=== PATIENT | male | born 1965 | race Caucasian/White ===

== ENCOUNTER 2018-01-20 12:27 | Observation (INO) ==
--- NOTE | 2018-01-20 12:49 | ED ---
HPI General Chief Complaint: Neuro Symptoms/Deficit Stated Complaint: medical Time Seen by Provider: 01/20/18 12:38 Source: patient, family and RN notes reviewed Limitations: altered mental status History of Present Illness HPI Narrative: 52-year-old male presents through triage with weakness and fall yesterday night. states that today about an hour and a half ago he got worse where he could not walk. She states that the weakness is always been on the left side. She states he has not had this before but is a chronic drinker and has not been drinking since they have been down here for the past couple of days on vacation. She denies other complaints for him. Patient is able to state his name but is very confused and cannot provide significant history so history is limited on initial examination and mainly obtained from the . Related Data Home Medications Medication Instructions Recorded Confirmed No Known Home Medications 01/20/18 01/20/18 Allergies Allergy/AdvReac Type Severity Reaction Status Date / Time No Known Allergies Allergy Unverified 01/20/18 12:39 Review of Systems ROS Unobtainable ROS Unobtainable: unobtainable due to mental status PMFSH History History Provided By: Family Member (History of alcoholism without significant history per ) Medical History Medical History Patient denies medical problems (Acute) Surgical History Surgical History No history of previous surgery (Acute) Social History Social History Substance History: Past History Smoking Status: Former smoker How Often Do You Have a Drink Containing Alcohol: 4 or more times a week Recent Travel in [facility] within the Last 8 Weeks: No Recent Out of Country Travel within the Last 8 Weeks: No Exam Narrative Exam Narrative: GENERAL: 52 y/o male in no apparent distress SKIN: Focused skin assessment warm/dry. HEAD: Atraumatic. Normocephalic. EYES: Pupils equal and round. No scleral icterus. No injection or drainage. ENT: No nasal bleeding or discharge. Mucous membranes pink and moist. NECK: Trachea midline. CARDIOVASCULAR: Regular rate and rhythm. RESPIRATORY: No accessory muscle use. Clear to auscultation. Breath sounds equal bilaterally. GASTROINTESTINAL: Abdomen soft, non-tender, nondistended. MUSCULOSKELETAL: No obvious deformities. No clubbing. No cyanosis. NEUROLOGICAL: Eyes open, states voice, significant weakness noted to left arm and left leg, sensory intact, clear speech Course Reevaluation(s) Reevaluation #1: on recheck symptoms have resolved, will admit for further care , agrees to plan Consultations Consultation #1: Dr. Blood states of CT brain is negative to give full-strength aspirin and admit and agrees outside stroke alert window Consultation #2: dr prasad agrees to admit Initial Documented Vital Signs Pulse Rate 73 01/20/18 12:42 Respiratory Rate 19 01/20/18 12:42 Blood Pressure 162/97 H 01/20/18 12:42 Pulse Oximetry 98 01/20/18 12:42 Last Documented Vital Signs Pulse Rate 57 L 01/20/18 14:00 Respiratory Rate 20 01/20/18 14:00 Blood Pressure 144/81 H 01/20/18 14:00 Pulse Oximetry 95 01/20/18 14:00 Medical Decision Making MDM Narrative Medical decision making narrative: Patient is outside stroke alert window given onset of symptoms yesterday evening. Will check stroke workup and discuss with neurologist Medical Screen Exam Complete: Yes Emergency Medical Condition: Yes Differential Diagnosis Differential Diagnosis: Stroke, subdural, mass Lab Data Lab results reviewed: Yes I reviewed the patient's lab results. Result diagrams: 01/20/18 13:00 01/20/18 13:00 Lab Results 01/20/18 01/20/18 01/20/18 Range/Units 13:00 13:00 13:00 WBC 8.1 (4.0-11.0) th/mm3 RBC 4.53 (4.50-5.90) mil/mm3 Hgb 15.1 (13.0-17.0) gm/dL Hct 43.6 (39.0-51.0) % MCV 96.1 (80.0-100.0) fL MCH 33.3 (27.0-34.0) pg MCHC 34.7 (32.0-36.0) % RDW 14.7 (11.6-17.2) % Plt Count 231 (150-450) th/mm3 MPV 8.8 (7.0-11.0) fL Neut % (Auto) 64.1 (16.0-70.0) % Lymph % (Auto) 22.9 (9.0-44.0) % [place] % (Auto) 9.5 H (0.0-8.0) % Eos % (Auto) 2.8 (0.0-4.0) % Baso % (Auto) 0.7 (0.0-2.0) % Neut # (Auto) 5.2 (1.8-7.7) th/mm3 Lymph # (Auto) 1.8 (1.0-4.8) th/mm3 [place] # (Auto) 0.8 (0.0-0.9) th/mm3 Eos # (Auto) 0.2 (0.0-0.4) th/mm3 Baso # (Auto) 0.1 (0.0-0.2) th/mm3 WBC Differential . Differential Comment Auto diff final PT (9.8-11.6) sec INR Ratio APTT (24.3-30.1) sec Fibrinogen (227-377) mg/dL Sodium 142 (136-145) meq/L Potassium 4.2 (3.5-5.1) meq/L Chloride 109 H (98-107) meq/L Carbon Dioxide 26.4 (21.0-32.0) meq/L Anion Gap 7 (5-15) meq/L BUN 11 (7-18) mg/dL Creatinine 1.02 (0.60-1.30) mg/dL Estimated GFR 77 L (>89) mL/min Random Glucose 92 (74-106) mg/dL Calcium 8.8 (8.5-10.1) mg/dL Total Creatine Kinase 183 (39-308) U/L Troponin I Less than 0.02 L (0.02-0.05) ng/mL Urine Color (Yellw/Straw) Urine Clarity (Clear) Urine pH (5.0-8.5) Ur Specific [place] (1.002-1.035) Urine Protein (Neg-Trace) mg/dL Urine Glucose (UA) (Negative) mg/dL Urine Ketones (Negative) mg/dL Urine Occult Blood (Negative) Urine Nitrate (Negative) Urine Bilirubin (Negative) Urine Urobilinogen (Less than 2) mg/dL Ur Leukocyte Esterase (Negative) Urine RBC (0-3) /hpf Urine WBC (0-5) /hpf Urine Mucus (Occasional) /lpf Micro UA Comment Ur Microscopic Review Urine Culture Comments Urine Opiates Screen (Neg) Ur Barbiturates Screen (Neg) Ur Amphetamines Screen (Neg) U Benzodiazepines Scrn (Neg) Urine Cocaine Screen (Neg) U Cannabinoids Screen (Neg) Serum Alcohol Less than 3 (0-5) mg/dL Blood Type A Positive Blood Type Recheck Required Antibody Screen Negative 01/20/18 01/20/18 01/20/18 Range/Units 13:33 13:33 13:48 WBC (4.0-11.0) th/mm3 RBC (4.50-5.90) mil/mm3 Hgb (13.0-17.0) gm/dL Hct (39.0-51.0) % MCV (80.0-100.0) fL MCH (27.0-34.0) pg MCHC (32.0-36.0) % RDW (11.6-17.2) % Plt Count (150-450) th/mm3 MPV (7.0-11.0) fL Neut % (Auto) (16.0-70.0) % Lymph % (Auto) (9.0-44.0) % [place] % (Auto) (0.0-8.0) % Eos % (Auto) (0.0-4.0) % Baso % (Auto) (0.0-2.0) % Neut # (Auto) (1.8-7.7) th/mm3 Lymph # (Auto) (1.0-4.8) th/mm3 [place] # (Auto) (0.0-0.9) th/mm3 Eos # (Auto) (0.0-0.4) th/mm3 Baso # (Auto) (0.0-0.2) th/mm3 WBC Differential Differential Comment PT 10.5 (9.8-11.6) sec INR 1.0 Ratio APTT 24.2 L (24.3-30.1) sec Fibrinogen 269 (227-377) mg/dL Sodium (136-145) meq/L Potassium (3.5-5.1) meq/L Chloride (98-107) meq/L Carbon Dioxide (21.0-32.0) meq/L Anion Gap (5-15) meq/L BUN (7-18) mg/dL Creatinine (0.60-1.30) mg/dL Estimated GFR (>89) mL/min Random Glucose (74-106) mg/dL Calcium (8.5-10.1) mg/dL Total Creatine Kinase (39-308) U/L Troponin I (0.02-0.05) ng/mL Urine Color Yellow (Yellw/Straw) Urine Clarity Clear (Clear) Urine pH 6.0 (5.0-8.5) Ur Specific [place] 1.015 (1.002-1.035) Urine Protein Negative (Neg-Trace) mg/dL Urine Glucose (UA) Negative (Negative) mg/dL Urine Ketones Negative (Negative) mg/dL Urine Occult Blood Negative (Negative) Urine Nitrate Negative (Negative) Urine Bilirubin Negative (Negative) Urine Urobilinogen Less than 2 (Less than 2) mg/dL Ur Leukocyte Esterase Negative (Negative) Urine RBC Less than 1 (0-3) /hpf Urine WBC 1 (0-5) /hpf Urine Mucus Few H (Occasional) /lpf Micro UA Comment Cath-culture not ind Ur Microscopic Review Not Reportable Urine Culture Comments Cath-cult not ind Urine Opiates Screen Neg (Neg) Ur Barbiturates Screen Neg (Neg) Ur Amphetamines Screen Neg (Neg) U Benzodiazepines Scrn Neg (Neg) Urine Cocaine Screen Neg (Neg) U Cannabinoids Screen Neg (Neg) Serum Alcohol (0-5) mg/dL Blood Type Blood Type Recheck Antibody Screen Imaging Data Attestation: I personally reviewed and interpreted this imaging study as follows : Radiologist's impression: Chest X-Ray 01/20/18 12:39 CONCLUSION: Negative examination. Head CT 01/20/18 12:39 CONCLUSION: 1. Normal appearance of the brain. . Cervical Spine CT 01/20/18 12:41 CONCLUSION: 1. Degenerative changes are noted. Discharge Plan Discharge Disposition Patient Disposition: 30 Still Patient Discharge Details Diagnosis: Transient cerebral ischemia Physicians Team ED Provider: Carla Stahl Primary Care Provider: Primary Care Christine Jones Rxs /Orders / Referrals /Forms Prescriptions: No Action No Known Home Medications RF: 0 Status ED Status: Admitted Observation Patient
--- NOTE | 2018-01-20 13:03 | XR ---
EXAM DATE: 01/20/2018 1:00 PM EDT AGE/SEX: 52 years / Male INDICATIONS: Stroke alert. CLINICAL DATA: This is the patient's initial encounter. Patient reports that signs and symptoms have been present for 1 day and indicates a pain score of 0/10. MEDICAL/SURGICAL HISTORY: None. None. COMPARISON: No prior exams available for comparison. FINDINGS: A single AP view of the chest demonstrates the lungs to be symmetrically aerated without evidence of mass, infiltrate or effusion. The cardiomediastinal contours are unremarkable. Osseous structures a re intact. CONCLUSION: Negative examination. Electronically signed by: Paulino Enamorado MD 01/20/2018 1:02 PM EDT
[2018-01-20] MEDS: Sod Chloride 0.9% Inj 1,000 ML IV.CONT SCH ×2 (13:17→21:21)
[2018-01-20 13:26] LABS: Baso # (Auto) 0.1 th/mm3 (0.0-0.2); Baso % (Auto) 0.7 % (0.0-2.0); Eos # (Auto) 0.2 th/mm3 (0.0-0.4); Eos % (Auto) 2.8 % (0.0-4.0); Hematocrit 43.6 % (39.0-51.0); Hemoglobin 15.1 gm/dL (13.0-17.0); Lymph # (Auto) 1.8 th/mm3 (1.0-4.8); Lymph % (Auto) 22.9 % (9.0-44.0); Mean Corpuscular HGB Conc 34.7 % (32.0-36.0); Mean Corpuscular Hemoglobin 33.3 pg (27.0-34.0); Mean Corpuscular Volume 96.1 fL (80.0-100.0); Mean Platelet Volume 8.8 fL (7.0-11.0); Mono # (Auto) 0.8 th/mm3 (0.0-0.9); Mono % (Auto) 9.5 % (0.0-8.0); Neut # (Auto) 5.2 th/mm3 (1.8-7.7); Neut % (Auto) 64.1 % (16.0-70.0); Platelet Count 231 th/mm3 (150-450); Red Blood Count 4.53 mil/mm3 (4.50-5.90); Red Cell Distribution Width 14.7 % (11.6-17.2); White Blood Count 8.1 th/mm3 (4.0-11.0)
--- NOTE | 2018-01-20 13:26 | CT ---
EXAM DATE: 01/20/2018 1:22 PM EDT AGE/SEX: 52 years / Male INDICATIONS: Trauma. Fall. Weakness left side of body. CLINICAL DATA: This is the patient's initial encounter. Patient reports that signs and symptoms have been present for 1 day and indicates a pain score of 7/10. MEDICAL/SURGICAL HISTORY: None. None. RADIATION DOSE: 23.70 CTDI (mGy) COMPARISON: No prior exams available for comparison. TECHNIQUE: Contiguous axial images were obtained using helical multirow detector technique. The vol umetric data was post-processed with multiplanar reconstruction in oblique axial, sagittal, and coron al planes. Using automated exposure control and adjustment of the mA and/or kV according to patient s ize, radiation dose was kept as low as reasonably achievable to obtain optimal diagnostic quality brian ges. DICOM format image data is available electronically for review and comparison. FINDINGS: There are apical emphysematous changes identified. Moderate canal stenosis at C3-4 secondary to a dif fuse disc osteophyte complex eccentric to the right. Associated mild to moderate bilateral foraminal narrowing. There are no compression deformities. The cervicothoracic junction is approximated. Anteri or osteophyte formation greatest at C6-7 where moderate to severe disc space narrowing is noted. [place] toid process is intact. Uncovertebral hypertrophy at C5-6 and C6-7 with endplate sclerosis. CONCLUSION: 1. Degenerative changes are noted. Electronically signed by: Paulino Enamorado MD 01/20/2018 1:25 PM EDT
[2018-01-20 13:51] LABS: Bilirubin,Urine Negative (Negative); Clarity,Urine Clear (Clear); Color,Urine Yellow (Yellw/Straw); Glucose,Urine (UA) Negative (Negative); Leukocyte Esterase,Urine Negative (Negative); Mucus,Urine Few /lpf (Occasional); Nitrite,Urine Negative (Negative); Specific Gravity,Urine 1.015 (1.002-1.035)
[2018-01-20 13:53] LABS: Amphetamine Screen,Urine Neg (Neg); Barbiturate Screen,Urine Neg (Neg); Cannabinoid Screen,Urine Neg (Neg); Cocaine Screen,Urine Neg (Neg)
[2018-01-20 13:54] LABS: Opiate Screen,Urine Neg (Neg)
[2018-01-20 13:55] LABS: Anion Gap 7 meq/L (5-15); Blood Urea Nitrogen 11 mg/dL (7-18); Calcium 8.8 mg/dL (8.5-10.1); Carbon Dioxide 26.4 meq/L (21.0-32.0); Chloride 109 meq/L (98-107); Creatine Kinase 183 U/L (39-308); Glomerular Filtration Rate 77 mL/min (>89); Glucose,Random 92 mg/dL (74-106); Potassium 4.2 meq/L (3.5-5.1); Sodium 142 meq/L (136-145)
[2018-01-20 14:06] LABS: Activated Partial Thrombo Time 24.2 sec (24.3-30.1); Prothrombin Time 10.5 sec (9.8-11.6)
--- NOTE | 2018-01-20 14:14 | CT ---
EXAM DATE: 01/20/2018 2:03 PM EDT AGE/SEX: 52 years / Male INDICATIONS: Altered mental status. Fall. CLINICAL DATA: This is the patient's initial encounter. Patient reports that signs and symptoms have been present for 1 day and indicates a pain score of 5/10. MEDICAL/SURGICAL HISTORY: Hypertension. None. RADIATION DOSE: 37.11 CTDI (mGy) COMPARISON: No prior exams available for comparison. TECHNIQUE: CT of the head without contrast. Using automated exposure control and adjustment of the mA and/or kV according to patient size, radiation dose was kept as low as reasonably achievable to ob tain optimal diagnostic quality images. DICOM format image data is available electronically for revi ew and comparison. FINDINGS: There is mild circumferential mucosal thickening in the maxillary sinuses and patchy ethmoid air cell mucosal disease. No fractures. CSF spaces, ventricles and cisterns are of normal size and configurat ion. No hemorrhage, infarct, or mass. CONCLUSION: 1. Normal appearance of the brain. . Electronically signed by: Paulino Enamorado MD 01/20/2018 2:13 PM EDT
[2018-01-20] MEDS ORDERED: Aspirin 325 MG Tablet PO ONE (14:20)
[2018-01-20] MEDS ORDERED: Enoxaparin Inj 40 MG/0.4 ML Syringe SQ SCH (16:00)
--- NOTE | 2018-01-20 18:22 | P.HPIM ---
History of Present Illness Primary Care Physician: No Primary Care Physician History of Present Illness: 52-year-old male with a [id number] history of smoking who presents with left- sided weakness starting yesterday evening. He says he experienced a mechanical fall secondary to the weakness yesterday. Patient reports that he drinks 6 beers per day, however is on vacation and has not had any alcohol in the past 4 days. He denies any shakes, denies any history of alcohol withdrawal. Denies any illicit drugs. Denies any fevers, chills, chest pain, shortness of breath. He reports that left-sided weakness is better now. Patient reports his mother of a stroke 2 weeks ago. Review of Systems All other systems reviewed negative except as stated in HPI PMFSH - History History Provided By: Patient - Medical / Surgical Hx Neg / Unobtainable Surgical History: No Previous Surgery - Medical History Medical History: Medical History (Last Updated 01/20/18 @ 12:41 by Amira Taveras RN) Patient denies medical problems - Surgical History Surgical History: Surgical History (Last Updated 01/20/18 @ 12:41 by Amira Taveras RN) No history of previous surgery - Family History Family History: Family History (Last Updated 01/20/18 @ 18:17 by Adarsh Figueroa MD) Mother Stroke Grandparent No problems noted. Father Kidney failure - Tobacco History Second Hand Smoke Exposure: No Tobacco Use In Past 30 Days: Yes Smoking Status: Current every day smoker Tobacco Type: Cigarettes, Cigars - Alcohol History How Often Do You Have a Drink Containing Alcohol: 2 to 3 times a week - Substance Use History Substance History: No History of Abuse - Travel History Recent Travel in the [place] Within the Last 8 Weeks: No Recent Travel Out of the Country Within the Last 8 Weeks: No - Immunization History Tetanus Immunization: Unsure Medications and Allergies Active Medications: Active Medications Aspirin (Ecotrin) 81 mg PO DAILY MAE Enoxaparin Sodium (Lovenox Inj) 40 mg SQ Q24H MAE Sodium Chloride (Ns Inj) 1,000 mls @ 70 mls/hr IV.CONT .[id number] MAE Last Admin: 01/20/18 13:17 Dose: 70 mls/hr Allergies Allergy/AdvReac Type Severity Reaction Status Date / Time No Known Allergies Allergy Unverified 09/03/18 12:39 Home Medications Medication Instructions Recorded Confirmed Type No Known Home Medications 01/20/18 01/20/18 History Exam Vital signs: Vital Signs 01/20/18 12:42 01/20/18 14:00 01/20/18 15:31 Pulse Rate 73 57 L 57 L Respiratory Rate 19 20 21 Blood Pressure 162/97 H 144/81 H 153/86 H Pulse Oximetry 98 95 97 01/20/18 17:11 Pulse Rate 57 L Respiratory Rate 16 Blood Pressure 150/85 H Pulse Oximetry 97 Intake & Output 01/19/18 01/20/18 01/20/18 18:59 06:59 18:59 Weight 87.543 kg Other: Date of Last Bowel Movement 01/20/18 Weight On Admission 87.543 kg Narrative: GENERAL: Patient sitting up in bed. Appears comfortable. Alert and oriented 4. SKIN: Warm and dry. HEAD: Atraumatic. Normocephalic. EYES: Pupils equal and round. No scleral icterus. No injection or drainage. ENT: No nasal bleeding or discharge. Mucous membranes pink and moist. NECK: Trachea midline. No JVD. CARDIOVASCULAR: Regular rate and rhythm. RESPIRATORY: No accessory muscle use. Clear to auscultation. Breath sounds equal bilaterally. GASTROINTESTINAL: Abdomen soft, non-tender, nondistended. Hepatic and splenic margins not palpable. MUSCULOSKELETAL: Extremities without clubbing, cyanosis, or edema. No obvious deformities. NEUROLOGICAL: Awake and alert. No obvious cranial nerve deficits. Motor grossly within normal limits. Five out of 5 muscle strength in the arms and legs. Normal speech. PSYCHIATRIC: Appropriate mood and affect; insight and judgment normal. Results - Labs CBC & Chem 7: 01/20/18 13:00 01/20/18 13:00 Labs: Short CBC 01/20/18 Range/Units 13:00 WBC 8.1 (4.0-11.0) th/mm3 Hgb 15.1 (13.0-17.0) gm/dL Hct 43.6 (39.0-51.0) % Plt Count 231 (150-450) th/mm3 BMP 01/20/18 13:00 Sodium 142 Potassium 4.2 Chloride 109 H Carbon Dioxide 26.4 BUN 11 Creatinine 1.02 Calcium 8.8 Cardiac Enzymes 01/20/18 Range/Units 13:00 Total Creatine Kinase 183 (39-308) U/L Troponin I Less than 0.02 L (0.02-0.05) ng/mL Urine 01/20/18 Range/Units 13:33 Urine Color Yellow (Yellw/Straw) Urine Clarity Clear (Clear) Urine pH 6.0 (5.0-8.5) Ur Specific [place] 1.015 (1.002-1.035) Urine Protein Negative (Neg-Trace) mg/dL Urine Glucose (UA) Negative (Negative) mg/dL - Imaging Impressions Chest X-Ray 01/20/18 12:39 CONCLUSION: Negative examination. Head CT 01/20/18 12:39 CONCLUSION: 1. Normal appearance of the brain. . Cervical Spine CT 01/20/18 12:41 CONCLUSION: 1. Degenerative changes are noted. Caprini VTE Risk Assessment Caprini VTE Risk Assessment: No/Low Risk (score <= 1) Caprini Risk Assessment Model: Point Value = 1 Point Value = 2 Point Value = 3 Point Value = 5 Age 41-60 Minor surgery BMI > 25 kg/m2 Swollen legs Varicose veins or History of unexplained or recurrent spontaneous Oral contraceptives or hormone replacement Sepsis (< 1 month) Serious lung disease, including pneumonia (< 1 month) Abnormal pulmonary function Acute myocardial infarction Congestive heart failure (< 1 month) History of inflammatory bowel disease Medical patient at bed rest Age 61-74 Arthroscopic surgery Major open surgery (> 45 min) Laparoscopic surgery (> 45 min) Malignancy Confined to bed (> 72 hours) Immobilizing plaster cast Central venous access Age >= 75 History of VTE Family history of VTE Factor V Leiden Prothrombin [id number] Lupus anticoagulant Anticardiolipin antibodies Elevated serum homocysteine Heparin-induced thrombocytopenia Other congenital or acquired thrombophilia Stroke (< 1 month) Elective arthroplasty Hip, pelvis, or leg fracture Acute spinal cord injury (< 1 month) Prophylaxis Regimen: Total Risk Factor Score Risk Level Prophylaxis Regimen 0-1 Low Early ambulation 2 Moderate Order ONE of the following: *Sequential Compression Device (SCD) *Heparin 5000 units SQ BID 3-4 Higher Order ONE of the following medications: *Heparin 5000 units SQ TID *Enoxaparin/Lovenox 40 mg SQ daily (WT < 150 kg, CrCl > 30 mL/min) *Enoxaparin/Lovenox 30 mg SQ daily (WT < 150 kg, CrCl > 10-29 mL/min) *Enoxaparin/Lovenox 30 mg SQ BID (WT < 150 kg, CrCl > 30 mL/min) AND/OR *Sequential Compression Device (SCD) 5 or more Highest Order ONE of the following medications: *Heparin 5000 units SQ TID (Preferred with Epidurals) *Enoxaparin/Lovenox 40 mg SQ daily (WT < 150 kg, CrCl > 30 mL/min) *Enoxaparin/Lovenox 30 mg SQ daily (WT < 150 kg, CrCl > 10-29 mL/min) *Enoxaparin/Lovenox 30 mg SQ BID (WT < 150 kg, CrCl > 30 mL/min) AND *Sequential Compression Device (SCD) Assessment and Plan - Plan //Suspected TIA //With mechanical fall without injury. -[id number] history of smoking -CT brain on admission negative for acute process. -A1c and lipid profile pending. -Start on aspirin. Neuro checks. -Order echocardiogram, carotid ultrasound, Holter monitor. Neurology consult ordered and pending. //Alcohol abuse. Patient reports drinking 6 beers per day. Denies any history of withdrawal. Vitals currently do not appear consistent with withdrawal. We will continue to monitor. Patient counseled on alcohol cessation. //Tobacco abuse. Cessation counseling provided. Discussed Condition With: Patient, nurse, ED physician. H&P: Quality - VTE Deep Vein Thrombosis/Pulmonary Embolism Present on Admission: No
--- NOTE | 2018-01-20 21:35 | ECG ---
Date Performed: 01/20/2018 Time Performed: 12:39:47 PTAGE: 52 years EKG: Sinus rhythm WITH SHORT VT INTERVAL BORDERLINE ECG NO PREVIOUS TRACING DOCTOR: Keshav Patel Interpretating Date/Time 01/20/2018 21:34:51
[2018-01-21] MEDS: Sod Chloride 0.9% Inj 1,000 ML IV.CONT SCH (03:32)
[2018-01-21 06:57] LABS: Chol/HDL Ratio 2.97 Ratio; HDL Cholesterol 47.8 mg/dL (40.0-60.0)
[2018-01-21 08:21] VITALS: O2SAT 96
--- NOTE | 2018-01-21 09:43 | US ---
EXAM DATE: 01/21/2018 9:38 AM EDT AGE/SEX: 52 years / Male INDICATIONS: Confusion. CLINICAL DATA: This is the patient's initial encounter. Patient reports that signs and symptoms have been present for 1 day and indicates a pain score of 0/10. MEDICAL/SURGICAL HISTORY: None. Patient denies any medical history. None. COMPARISON: No prior exams available for comparison. VELOCITY PARAMETERS: ICA/CCA Ratio: Right 0.9 , Left 1.1 ICA: Right 91 cm/sec, Left 122 cm/sec CCA: Right 106 cm/sec, Left 116 cm/sec ECA: Right 110 cm/sec, Left 127 cm/sec Vertebral: Right 45 cm/sec antegrade, Left 73 cm/sec antegrade FINDINGS: Right Carotid: Mild arteriosclerotic plaque is visualized.The waveforms are within normal limits. Left Carotid: No significant plaque is visualized. The waveforms are within normal limits. Other: None. CONCLUSION: No hemodynamically significant stenosis in either carotid artery Electronically signed by: Froilan Dyer MD 01/21/2018 9:42 AM EDT
--- NOTE | 2018-01-21 11:19 | ECHRPT ---
Indication: CONCLUSIONS The left ventricular systolic function is normal with an estimated ejection fraction in the range of 60-65%. Normal left ventricular size. Wall thickness is normal. No regional wall motion abnormalities are present. There is trace tricuspid valve regurgitation. The estimated pulmonary arterial pressure is 42.7 mmHg. BP: / HR: Rhythm: Sinus MEASUREMENTS (Male / Female) Normal Values Technical Quality:Good 2D ECHO LV Diastolic Diameter PLAX 5.3 cm 4.2 - 5.9 / 3.9 - 5.3 cm LV Systolic Diameter PLAX 3.6 cm IVS Diastolic Thickness 1.2 cm 0.6 - 1.0 / 0.6 - 0.9 cm LVPW Diastolic Thickness 1.1 cm 0.6 - 1.0 / 0.6 - 0.9 cm LV Relative Wall Thickness 0.4 RV Internal Dim ED PLAX 2.9 cm LVOT Diameter 2.3 cm LA Systolic Diameter LX 3.8 cm 3.0 - 4.0 / 2.7 - 3.8 cm LV Ejection Fraction MOD 4C 62.4 % LV Ejection Fraction 4C AL 64.0 % M-MODE Aortic Root Diameter MM 2.2 cm LA Systolic Diameter MM 3.6 cm LA Ao Ratio MM 1.6 AV Cusp Separation MM 2.0 cm DOPPLER AV Peak Velocity 162.0 cm/s AV Peak Gradient 10.5 mmHg AI Peak Velocity 405.5 cm/s AI Peak Gradient 65.8 mmHg AI Pressure Half Time 412.0 ms LVOT Peak Velocity 104.0 cm/s LVOT Peak Gradient 4.3 mmHg AV Area Cont Eq pk 2.7 cm MV Area PHT 4.6 cm Mitral E Point Velocity 111.0 cm/s Mitral A Point Velocity 60.2 cm/s Mitral E to A Ratio 1.8 LV E' Lateral Velocity 12.6 cm/s Mitral E to LV E' Lateral Ratio 8.8 LV E' Septal Velocity 9.7 cm/s Mitral E to LV E' Septal Ratio 11.5 TR Peak Velocity 286.0 cm/s TR Peak Gradient 32.7 mmHg Right Atrial Pressure 10.0 mmHg Pulmonary Artery Systolic Pressu 42.7 mmHg Right Ventricular Systolic Press 42.7 mmHg PV Peak Velocity 97.7 cm/s PV Peak Gradient 3.8 mmHg FINDINGS LEFT VENTRICLE The left ventricular systolic function is normal with an estimated ejection fraction in the range of 60-65%. Normal left ventricular size. Wall thickness is normal. No regional wall motion abnormalities are present. RIGHT VENTRICLE Normal right ventricular size and systolic function. LEFT ATRIUM The left atrial size is normal. RIGHT ATRIUM The right atrial size is normal. ATRIAL SEPTUM Normal atrial septal thickness without atrial level shunting by limited color doppler interrogation. AORTA The aortic root and proximal ascending aorta are normal in size on limited imaging. MITRAL VALVE Structurally normal mitral valve. No mitral valve stenosis or regurgitation. AORTIC VALVE Trileaflet aortic valve. No aortic valve stenosis or regurgitation. TRICUSPID VALVE Structurally normal tricuspid valve. There is trace tricuspid valve regurgitation. The estimated pulmonary arterial pressure is 42.7 mmHg. PULMONARY VALVE No pulmonary valve regurgitation or stenosis. VESSELS The inferior vena cava is normal in size. PERICARDIUM No pericardial effusion. Willy Rai MD, FACC (Electronically Signed) Final Date:21 January 2018 11:17
[2018-01-21 11:38] VITALS: BP 160/75; PULSE 57; RESP 16; TEMP 98.2
[2018-01-21 15:38] LABS: Hemoglobin A1c 5.4 % (4.3-6.0)
--- NOTE | 2018-01-21 16:06 | P.PN ---
Subjective Interval history: follow up for left sided weakness: Left-sided weakness resolved, no paresthesias , no slurring of words, has been ambulating to bathroom without any difficulty. Denies any chest pain, no shortness of breath. Patient is anxious to go home. States that he wants to try to enjoy one more day before he goes back home. His is at bedside. Physical Exam Vital signs: Vital Signs 01/20/18 17:11 01/20/18 20:00 01/21/18 00:00 Temperature 98.4 F 98.5 F Pulse Rate 57 L 68 56 L Respiratory Rate 16 21 17 Blood Pressure 150/85 H 157/74 H 162/74 H Pulse Oximetry 97 95 95 01/21/18 04:00 01/21/18 08:00 01/21/18 11:36 Temperature 98.4 F 98.1 F 98.2 F Pulse Rate 58 L 62 57 L Respiratory Rate 17 18 16 Blood Pressure 142/77 H 161/84 H 160/75 H Pulse Oximetry 97 96 96 Intake & Output 01/20/18 01/21/18 01/21/18 18:59 06:59 18:59 Intake Total 1999 Balance 1999 Weight 87.543 kg Intake: IV 1999 NS Inj 1,000 ML @ 70 mls/hr IV. 1999 CONT .[id number] [facility] Rx#:[id number] Other: Date of Last Bowel Movement 01/20/18 01/20/18 Weight On Admission 87.543 kg Narrative: GENERAL: Well-nourished, well-developed patient in no apparent distress. SKIN: Warm and dry. HEAD: Atraumatic. Normocephalic. EYES: Pupils equal and round. No scleral icterus. No injection or drainage. ENT: No nasal bleeding or discharge. Mucous membranes pink and moist. NECK: Trachea midline. No JVD. CARDIOVASCULAR: Regular rate and rhythm. RESPIRATORY: No accessory muscle use. Clear to auscultation. Breath sounds equal bilaterally. GASTROINTESTINAL: Abdomen soft, non-tender, nondistended. Hepatic and splenic margins not palpable. MUSCULOSKELETAL: Extremities without clubbing, cyanosis, or edema. No obvious deformities. NEUROLOGICAL: Awake and alert and oriented 3. No obvious cranial nerve deficits. Motor grossly within normal limits. Five out of 5 muscle strength in the arms and legs. Normal speech. PSYCHIATRIC: Appropriate mood and affect; insight and judgment normal. - Urinary Catheter Management Straight Cath placed during this visit: yes, but has since been removed by the nurse Reason for continuing: Not indwelling catheter Insertion date: 01/20/18 Insertion time: 13:30 Removal date: 01/20/18 Removal time: 13:32 Results - Labs CBC & Chem 7: 01/20/18 13:00 01/20/18 13:00 Laboratory Results - last 24 hr 01/20/18 01/21/18 01/21/18 17:16 00:47 05:35 POC Glucose 125 H 89 Triglycerides 89 Cholesterol 142 LDL Cholesterol, Calc 76 HDL Cholesterol 47.8 Cholesterol/HDL Ratio 2.97 - Imaging Impressions Carotid Doppler Study 01/21/18 00:00 CONCLUSION: No hemodynamically significant stenosis in either carotid artery Assessment and Plan - Assessment (1) Transient cerebral ischemia Code(s): G45.9 - Transient cerebral ischemic attack, unspecified Status: Acute (2) Tobacco abuse Code(s): Z72.0 - Tobacco use Status: Chronic - Plan 52-year-old male with a [id number] history of smoking who presents with left- sided weakness starting yesterday evening. He says he experienced a mechanical fall secondary to the weakness yesterday. Patient reported that he drinks 6 beers per day, however is on vacation and has not had any alcohol in the past 4 days. He reported that left-sided weakness was better now. Patient reported his mother of a stroke 2 weeks ago. Suspected TIA with mechanical fall without injury. -CT brain on admission negative for acute process. -A1c pending, lipid profile noted. -Continue with aspirin -Continue with normal saline at 75 Neurochecks per protocol Permissive hypertension, blood pressure 140s-160s Echocardiogram completed, EF 60-65%, -Holter monitor done, patient can follow-up for results as outpatient. Neurology consultation pending Carotid ultrasound results noted, no stenosis -Stroke navigator consult PT, OT, speech therapy per protocol Alcohol abuse. Patient reports drinking 6 beers per day. Denies any history of withdrawal. Vitals currently do not appear consistent with withdrawal. -We will continue to monitor. -Patient counseled on alcohol cessation. Tobacco abuse. -Cessation counseling provided. Possible discharge today when he is cleared by neurology. Will have RN call consult again Symptoms have resolved Discussed with patient and at length, needs to stop smoking and drinking. Evaluated per isak Nuno for discharge. Recommends transesophageal echocardiogram as outpatient as well as anticoagulation workup. Patient indicates that he will follow-up as outpatient when he goes back to [place]. He was counseled extensively about tobacco abuse. Stroke navigator also evaluated patient and provided stroke education. Patient instructed to continue on aspirin 325 mg p.o. daily. (1) Transient cerebral ischemia Qualifiers: Transient cerebral ischemia type: unspecified Qualified Code(s): G45.9 - Transient cerebral ischemic attack, unspecified
--- NOTE | 2018-01-21 19:20 | MB ---
cc: Jake Blood MD, PhD DATE: 01/21/2018 REASON FOR CONSULTATION: TIA. HISTORY OF PRESENT ILLNESS: Mr. Young is a 52-year-old man who is on vacation from [place]. Two days ago suddenly developed left-sided weakness with some dysarthria. He had a left facial droop. The arm and leg were weak. His symptoms have since completely resolved. He feels back to normal at the present time. He has no prior history of stroke. Denies any past medical history. SOCIAL HISTORY: He does drink alcohol daily. He smokes quite a bit. MEDICATIONS AT HOME: None. NEUROLOGIC EXAMINATION: VITAL SIGNS: Blood pressure is 142/77, pulse 54, respirations 17, temperature 98 degrees. Higher cortical functions are normal. Cranial nerves are intact. 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 There is no drift. Fine motor skills are within normal limits. Reflexes are symmetric. LABORATORY DATA: The white count is 8100, hemoglobin 15.1, hematocrit 43.6%, platelets 231,000. His PT 10.5. INR 1, aPTT 24.2. Sodium is 142, potassium 4.2, chloride 109, CO2 26.4, BUN is 11, creatinine 1.02, GFR 77, glucose 92, LDL 76, HDL 47.8, cholesterol 142. Tox screen negative. Alcohol level less than 3. UA reveals a pH of 6, creatinine of 1.15. IMPRESSION: CT of the brain is normal. Carotid ultrasound normal. Echocardiogram shows ejection fraction of 60% to 65%, normal left ventricular size, wall thickness is normal. There is no regional wall motion abnormalities. Left atrial size normal, right ventricle size and function are normal. Mitral valve is normal. Aortic root is normal. Aortic valve is normal. Tricuspid valve shows mild regurgitation. Pulmonary valve is normal with no vegetation. IMPRESSION: Transient ischemic attack, now completely resolved. RECOMMENDATIONS: Aspirin 325 mg daily. I strongly advised the patient to stop smoking. Because of his young age, would recommend a transesophageal echocardiogram to rule out patent foramen ovale. I also recommend labs to rule out hypercoagulable state including a lupus anticoagulant, anticardiolipin antibody panel, protein S, protein C, antithrombin III, Leiden Factor V, prothrombin gene mutation. The patient is requesting to be discharged to home. He is stable neurologically the above studies, i.e., the lab work and the TAHMINA could be accomplished as an outpatient. He states he would like to discuss this with his physician when he gets back to his home state. I did advise him if he were to have any other neurologic symptoms to report immediately to the emergency room. Thank you for asking me to see this nice patient in consult. Jake Blood MD, PhD SOBEIDA/ct , 06:21 PM , 06:29 PM
--- NOTE | 2018-01-22 13:45 | HM ---
Date Performed: 01/20/2018 Time Performed: 20:34:00 HOOKUP DATE: 01/20/18 08:34:00 PM Mon ANALYSIS START TIME: 01/20/2018 8:39:00 PM ANALYSIS END TIME: 01/21/2018 7:17:07 PM PATIENT AGE: 52 PATIENT HEIGHT PATIENT WEIGHT DRUG LIST PATIENT DIAGNOSIS: MEDICAL TEST NARRATIVE: The patient's average heart rate was 61 BPM. No episodes of tachycardia wer e noted. Heart rates less than 50 BPM were noted 8% of the time. No pauses exceeding 2.0 seconds were noted. 265 ventricular ectopics, which represented < 1% of the total beat count, were noted . The highest ventricular ectopic frequency occurred from 08:00 AM to 09:00 AM Tue. During this caryn e 77 VE(s) occurred. Ventricular ectopics were observed as 256 isolated beat(s), as 1 couplet(s) and as 1 run(s). 82 supraventricular ectopics, which represented < 1% of the total beat count, were noted. The highest supraventricular ectopic frequency occurred from 09:00 PM to 10:00 PM Mon. Durin g this time 27 SVE(s) occurred. Multiple episodes of ST depression (defined as -1.0 mm or more) were noted in channel 1. The maximum depression of -2.1 mm occurred at 07:16:54 PM Tue. No episodes of ST depression (defined as -1.0 mm or more) were noted in channel 2. No episodes of ST depression (defined as -1.0 mm or more) were noted in channel 3. NO DIARY GIVEN TO PATIENT TEST INTERPRETATION: Sinus rhythm Occasional premature ventricular complexes Short episode of probable accelerated ventricular rhythm Rare to occasional PACs Signed by : Willy Rai
== END 2018-01-21 19:05 | disposition home or self-care (01) ==
LOC: NEPE 12:27 → NEDA 12:27 → NEPHCDU 16:37
PROVIDERS: ADMIT Hospitalist; ATTEND Hospitalist
DX: W18.30XA Fall on same level, unspecified, initial encounter; Z82.3 Family history of stroke; I65.21 Occlusion and stenosis of right carotid artery; I07.1 Rheumatic tricuspid insufficiency; Z72.0 Tobacco use; Z79.82 Long term (current) use of aspirin; R94.31 Abnormal electrocardiogram [ECG] [EKG]; I10 Essential (primary) hypertension; F10.10 Alcohol abuse, uncomplicated